=== PATIENT | male | born 1960 | race Caucasian/White ===

== ENCOUNTER 2016-09-01 18:30 | Emergency (ER) | payer SELFPAY ==
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
[2016-09-01] MEDS ORDERED: EFFEXOR (18:50)
[2016-09-01] MEDS ORDERED: ATARAX (18:51)
== END 2016-09-01 22:12 | disposition home or self-care (01) ==
LOC: SED 18:30
DX: S09.90XA Unspecified injury of head, initial encounter (principal); S01.81XA Laceration without foreign body of other part of head, initial encounter; S63.502A Unspecified sprain of left wrist, initial encounter; R07.89 Other chest pain; F41.9 Anxiety disorder, unspecified; F32.9 Major depressive disorder, single episode, unspecified; Z98.890 Other specified postprocedural states; Z88.0 Allergy status to penicillin; Z88.2 Allergy status to sulfonamides; Z79.899 Other long term (current) drug therapy; V29.60XA Unspecified motorcycle rider injured in collision with unspecified motor vehicles in traffic accident, initial encounter; Z23 Encounter for immunization
CPT/HCPCS: 29260; 70450; 71020; 72072; 72125; 73100; 73120; 90471; 90715; 99284; 99285